=== PATIENT | male | born 1995 | race Caucasian/White ===

== ENCOUNTER → 2021-05-18 13:54 | Outpatient (CLI) | payer OTHER, SELFPAY ==
--- NOTE | 2021-05-18 | DI.ECHO.S_ITS ---
[place] [facility]---------+ [facility] +---------+ : : [address] : [address] : : : : [id number] : : : : Phone: [phone]+ Echocardiogram Report + + :Name: LILLIAN BARRY Study Date: 05/18/2021 Height: 76 in : :[facility] ReadingLocation: Weight: 210 lb : : Gender: Male BSA: 2.3 m2 : :: 1995 Age: 25 yrs BP: 121/76 mmHg: :Reason For Study: ENCOUNTER FOR GENERAL ADULT MEDICAL : :EXAMINATION : :Ordering Physician: SUDHAKAR, : :JULIETA Performed By: Helga Bartlett : :Referring: JULIETA DE LA FUENTE : + + Interpretation Summary Normal echo study. Procedure: A two-dimensional transthoracic echocardiogram with color flow and Doppler was performed. The study quality was technically adequate. There is no prior echocardiogram noted for this patient. The patient was in sinus rhythm with heart rates between 65-75 bpm during the exam. Left Ventricle: The left ventricle is normal in size and wall thickness. The ejection fraction is estimated to be 60-65%. Left ventricular wall motion is normal. Diastolic parameters suggest probable normal left ventricular diastolic function and normal filling pressures. Right Ventricle: The right ventricle is normal in size and function. Atria: Both atria are normal in size. There is no Doppler evidence for an interatrial shunt. Mitral Valve: The mitral valve is normal in structure and function. There is trace mitral regurgitation. Aortic Valve: The aortic valve is trileaflet. The aortic valve opens well. There is no aortic valve stenosis. No aortic regurgitation is present. Tricuspid Valve: The tricuspid valve is normal in structure and function. There is trace tricuspid regurgitation. Pulmonary artery pressures cannot be estimated because of the lack of a measurable TR jet velocity but the IVC suggests a CVP of around 3 mmHg. Pulmonic Valve: The pulmonic valve leaflets are thin and pliable; valve motion is normal. There is trace pulmonic regurgitation. Great Vessels: The aortic root is normal size. The ascending aorta is normal in size. The IVC is of normal diameter and collapses greater than 50% with a sniff. This suggests a low right atrial pressure of 3 mm Hg. Pericardium/ Pleura There is no pericardial effusion. There is no pleural effusion. MMode/2D Measurements & Calculations LVIDd: 5.5 cm LVOT diam: 2.4 cm LVIDs: 3.7 cm Ao root diam: 3.5 cm FS: 33.6 % asc Aorta Diam: 3.0 cm IVSd: 0.70 cm Ao Arch Diam (Prox Trans): 2.6 cm LVPWd: 0.68 cm LV hough. diameter/BSA (cm/m^2): 2.4 LV sys. diameter/BSA (cm/m^2): 1.6 LA A2 area: 22.2 cm2 RA long axis: 5.0 cm LA A4 area: 15.3 cm2 RA area: 14.8 cm2 LA length (vol): 4.8 cm RA vol: 37.6 ml LA vol: 60.0 ml RA : 16.6 ml/m2 LA vol index: 26.5 ml/m2 IVC diam: 1.4 cm RVD1 (basal): 4.0 cm TAPSE: 1.8 cm Doppler Measurements & Calculations Ao V2 max: 108.3 cm/sec LVOT Max Yohan: 82.0 cm/sec Ao V2 mean: 76.4 cm/sec LV V1 max P.7 mmHg Ao max P.7 mmHg LV V1 VTI: 17.2 cm Ao mean P.6 mmHg RUBNE(I,D): 3.6 cm2 Ao V2 VTI: 21.5 cm RUBEN(V,D): 3.4 cm2 sev ratio: 0.80 RUBEN indexed to BSA (cm^2/m^2): 1.6 MV E max yohan: 59.0 cm/sec PA V2 max: 100.9 cm/sec MV A max yohan: 33.5 cm/sec PA V2 mean: 65.3 cm/sec MV E/A: 1.8 PA mean P.0 mmHg Med Peak E' Yohan: 11.6 cm/sec PA pr(Accel): 12.2 mmHg E/E' med: 5.1 Lat Peak E' Yohan: 14.6 cm/sec E/E' lat: 4.0 E/e' average: 4.6 MV dec time: 0.26 sec SV(LVOT): 77.3 ml Electronically signed by: Tasneem Cardenas on Reading Physician:05/18/2021 04:41 PM
== END ==
PROVIDERS: Referring Provider Physician Assistant; Visit Provider Physician Assistant
DX: Z00.00 Encounter for general adult medical examination without abnormal findings (principal)
CPT/HCPCS: 93306